=== PATIENT | male | born 1975 | race African-American/Black ===

== ENCOUNTER 2016-12-21 20:45 | Emergency (ER) | payer MEDICARE, OTHER ==
[~2016-12-21] VITALS: Ht 180.3 cm; Wt 168.7 kg
[2016-12-21] MEDS ORDERED: NKM (21:13)
[2016-12-21 21:17] VITALS: BP 136/76
[2016-12-21] MEDS ORDERED: MAALOX ADVANCE770 ML PO (21:53)
--- NOTE | 2016-12-21 21:54 | Emergency Room Report ---
History of Present Illness General Chief Complaint: Sore Throat Source: Patient Present Illness HPI Is a 41-year-old male with history hypertension. He presents with chief complaint of sore throat. Onset for last 2 days. Hurts to swallow. Denies any fever or chills. Denies any nausea vomiting. Able to drink and take fluid. No other complaint. Never had this problem before. Allergies: Coded Allergies: No Known Allergies (Unverified , 04/20/15) Patient History Past Medical History: see triage record, old chart reviewed, HTN Past Surgical History: none Pertinent Family History: none Social History: Denies: drug use Immunizations: other Reviewed Nursing Documentation: PMH: Agreed, PSxH: Agreed Nursing Documentation-PMH Hx Hypertension: Yes Hx Asthma: Yes Review of Systems Eye: Denies: blurred vision, eye pain ENT: Reports: throat pain, Denies: ear pain, nose congestion, throat swelling Respiratory: Denies: cough, shortness of breath Cardiovascular: Denies: chest pain, palpitations Gastrointestinal: Denies: abdominal pain, diarrhea, nausea, vomiting Musculoskeletal: Denies: back pain, joint pain Skin: Denies: rash Neurological: Denies: headache, numbness Endocrine: Denies: increased thirst, increased urine Hematologic/Lymphatic: Denies: easy bruising All Other Systems: negative except mentioned in HPI Physical Exam Vital Signs Date Time Temp Pulse Resp B/P Pulse Ox O2 Delivery O2 Flow Rate FiO2 12/21/16 21:09 98.2 84 16 136/76 99 Room Air vitals normal Sp02 EP Interpretation: reviewed, normal General Appearance: well appearing, no apparent distress, alert Head: normocephalic, atraumatic Eyes: bilateral eye EOMI, bilateral eye PERRL ENT: hearing grossly normal, normal pharynx Neck: full range of motion, supple, no meningismus Respiratory: chest non-tender, lungs clear, normal breath sounds Cardiovascular #1: regular rate, rhythm, no murmur Gastrointestinal: normal bowel sounds, non tender, no mass, no organomegaly, no bruit, non-distended Musculoskeletal: back normal, gait/station normal, normal range of motion Psychiatric: mood/affect normal Skin: warm/dry Medical Decision Making Diagnostic Impression: Primary Impression: Sore throat Additional Impression: Morbid obesity with BMI of 50.0-59.9, adult ER Course Patient presents with sore throat and esophageal pain. No evidence of peritonsillar abscess or retropharyngeal abscess. This may be just a viral illness. Could be stricture, esophagitis, or foreign body. He refuse to eat or drink even a small amount. We'll refer him to see GI Dr. I see no evidence of crepitance of his neck. He is otherwise stable. He has multiple stickers from other hospitals on his duffel bag. These are within the last week. Last Vital Signs Date Time Temp Pulse Resp B/P Pulse Ox O2 Delivery O2 Flow Rate FiO2 12/21/16 21:17 98.2 79 16 136/76 99 Room Air Status: improved Disposition: HOME, SELF-CARE Condition: Stable Scripts Mag Hydrox/Al Hydrox/Simeth (Maalox Advanced Suspension) 355 Ml Oral.susp 770 ML PO QID, #120 ML Prov: AMERICO RUBI M.D. 12/21/16 Referrals: NOT CHOSEN IPA/,REFERRING (PCP) Patient Instructions: Sore Throat Additional Instructions: Followup with your DrLouis in 2 to 3 days. You would need a referral to see a GI doctor. Return if symptom worsen. AMERICO RUBI M.D. Dec 21, 2016 21:54
[2016-12-21 21:56] VITALS: BP 136/76
== END 2016-12-21 21:56 | disposition home or self-care (01) ==
LOC: EMR 21:45
DX: R07.0 Pain in throat (principal); E66.01 Morbid (severe) obesity due to excess calories; Z68.43 Body mass index [BMI] 50.0-59.9, adult; J45.909 Unspecified asthma, uncomplicated; I10 Essential (primary) hypertension
CPT/HCPCS: 99283

== ENCOUNTER 2017-04-13 19:52 | Emergency (ER) | payer MEDICARE, OTHER ==
[~2017-04-13] VITALS: Ht 172.7 cm; Wt 171.5 kg
[~2017-04-13 19:52] MED LIST: MAALOX ADVANCE770 ML PO; NKM
[2017-04-13] MEDS ORDERED: Albuterol ud Inhalation HHN ONE (20:15)
[2017-04-13 20:41] VITALS: BP 126/80
[2017-04-13 20:46] LABS: BASOPHILS % (AUTO) 0.9 % (0.0-2.0); EOSINOPHILS % (AUTO) 2.9 % (0.0-3.0); LYMPHOCYTES % (AUTO) 20.3 % (20.0-45.0); MEAN CORPUSCULAR HEMOGLOBIN 27.2 PG (27.0-31.0); MEAN CORPUSCULAR HGB CONC 32.7 G/DL (32.0-36.0); MEAN CORPUSCULAR VOLUME 83 FL (80-99); MEAN PLATELET VOLUME 9.1 FL (6.5-10.1); MONOCYTES % (AUTO) 6.9 % (1.0-10.0); PLATELET COUNT 199 K/UL (150-450); RED BLOOD COUNT 5.63 M/UL (4.70-6.10); RED CELL DISTRIBUTION WIDTH 12.8 % (11.6-14.8)
--- NOTE | 2017-04-13 20:46 | Emergency Room Report ---
History of Present Illness General Chief Complaint: Asthma Source: Patient, Medical Record Present Illness HPI The patient presents with suicidal ideation and wheezing. His plan is to run out of traffic.. He says that voices are telling him not to take his medication. In addition to that are telling him to kill himself. The patient was seen here yesterday with similar complaints. He was discharged. He states that he still feels as bad if not worse symptoms. In addition to that he has wheezing. He does not have an inhaler. Allergies: Coded Allergies: No Known Allergies (Unverified , 04/20/15) Patient History Past Medical History: see triage record Social History Narrative homeless - apparently has used up all of his medicare benifits Reviewed Nursing Documentation: PMH: Agreed, PSxH: Agreed Nursing Documentation-PMH Past Medical History: No History, Except For Hx Hypertension: Yes Hx Asthma: Yes Physical Exam Vital Signs Date Time Temp Pulse Resp B/P Pulse Ox O2 Delivery O2 Flow Rate FiO2 04/13/17 20:00 98.2 98 18 129/85 97 Room Air Respiratory: wheezing - minimal, expiration Neurologic: alert, oriented x3, grossly normal Psychiatric: depressed affect, anxious Suicide Risk Assessment: Suicidal Ideation: Yes Had intent to initiate attempt: Yes Pt's plan for suicide attempt: Yes Has means to complete attempt: Yes Medical Decision Making Diagnostic Impression: Primary Impression: Schizophrenia Additional Impression: Asthma ER Course Discussed with Dr. Kohli. Patient requests colace and lasix. Laboratory Tests Test 04/13/17 20:25 White Blood Count 12.0 K/UL (4.8-10.8) H Red Blood Count 5.63 M/UL (4.70-6.10) Hemoglobin 15.3 G/DL (14.2-18.0) Hematocrit 46.8 % (42.0-52.0) Mean Corpuscular Volume 83 FL (80-99) Mean Corpuscular Hemoglobin 27.2 PG (27.0-31.0) Mean Corpuscular Hemoglobin Concent 32.7 G/DL (32.0-36.0) Red Cell Distribution Width 12.8 % (11.6-14.8) Platelet Count 199 K/UL (150-450) Mean Platelet Volume 9.1 FL (6.5-10.1) Neutrophils (%) (Auto) 69.0 % (45.0-75.0) Lymphocytes (%) (Auto) 20.3 % (20.0-45.0) Monocytes (%) (Auto) 6.9 % (1.0-10.0) Eosinophils (%) (Auto) 2.9 % (0.0-3.0) Basophils (%) (Auto) 0.9 % (0.0-2.0) Sodium Level 137 mEQ/L (135-145) Potassium Level 4.4 mEQ/L (3.4-4.9) Chloride Level 97 mEQ/L (98-107) L Carbon Dioxide Level 25 mEQ/L (20-30) Anion Gap 15 (5-15) Blood Urea Nitrogen 11 mg/dL (7-23) Creatinine 1.2 mg/dL (0.7-1.2) Estimate Glomerular Filtration Rate > 60 mL/min (>60) Glucose Level 125 mg/dL (74-106) H Calcium Level 9.0 mg/dL (8.6-10.2) Total Bilirubin 0.5 mg/dL (0.0-1.2) Aspartate Amino Transferase (AST) 29 U/L (5-40) Alanine Aminotransferase (ALT) 19 U/L (3-41) Alkaline Phosphatase 111 U/L (40-129) Total Protein 7.5 g/dL (6.6-8.7) Albumin 4.3 g/dL (3.5-5.2) Globulin 3.2 g/dL Albumin/Globulin Ratio 1.3 (1.0-2.7) Salicylates Level < 1 mg/dL (10-30) L Acetaminophen Level < 10 ug/mL (10-30) L Serum Alcohol < 10 mg/dL Chest X-Ray Diagnostic Results Chest X-Ray Ordered: Yes # of Views/Limited/Complete: 1 View EP Interpretation: Yes Interpretation: no consolidation, no effusion, no pneumothorax, no acute cardiopulmonary disease Indication: Shortness of Breath Impression: No acute disease Status: improved Disposition: HOME, SELF-CARE Condition: Improved Ignacio Kruse M.D. Apr 13, 2017 20:46
[2017-04-13 20:59] LABS: ACETAMINOPHEN < 10 ug/mL (10-30); ALANINE AMINOTRANSFERASE 19 U/L (3-41); ALBUMIN/GLOBULIN RATIO 1.3 (1.0-2.7); ALCOHOL < 10 mg/dL; ANION GAP 15 (5-15); ASPARTATE AMINO TRANSFERASE 29 U/L (5-40); CARBON DIOXIDE 25 mEQ/L (20-30); CHLORIDE 97 mEQ/L (98-107); CREATININE 1.2 mg/dL (0.7-1.2); GLOMERULAR FILTRATION RATE > 60 mL/min (>60); HEMOLYSIS 152; POTASSIUM 4.4 mEQ/L (3.4-4.9); SODIUM 137 mEQ/L (135-145); TOTAL PROTEIN 7.5 g/dL (6.6-8.7)
[2017-04-13] MEDS ORDERED: Bacitracin Oint UD TOPIC ONE (21:15)
--- NOTE | 2017-04-13 23:26 | Consultation ---
History of Present Illness General Chief Complaint: Asthma Present Illness HPI 42 yo male with hx of "schizoaffective disorder" came in with cc of RAKESH commanding type, telling him to walk into the traffic. the pt was seen in ed in the morning. He insisted that he is not doing well and if discharge him..he'll jump in front of the car. the pt appeared to be anxious and stated that he has not taken his bp meds. the pt denied recent psych hospitalization and stated that he was last hospitalized a year ago. He replied "i don't know" to most of my questions. The pt stated "I dont want to get into these games...why are you asking so many questions" Later I was notified that hte pt was recently at [facility]. after more research I found out that the pt left the hospital prior coming [place]. the pt has been homeless and apparently was interested only in placement at a sniff or [facility]. I spoke with Dr. Mims regarding this situation and the pt was discharge with f/u referrals. Allergies: Coded Allergies: No Known Allergies (Unverified , 04/20/15) Medication History Scheduled Mag Hydrox/Al Hydrox/Simeth (Maalox Advanced Suspension), 770 ML PO QID No Known Medications* (NKM - No Known Medications*), 0 ., (Reported) Patient History History Provided By: Patient, Medical Record, PMD Healthcare decision maker Resuscitation status Advanced Directive on File Past Medical/Surgical History Past Medical/Surgical History: (1) Palpitations Review of Systems Psychiatric: Reports: anxiety, depressed feelings, emotional problems, prior hx Physical Exam General Appearance: no apparent distress, alert, obese Neurologic: alert, oriented x 3 Last 24 Hour Vital Signs Date Time Temp Pulse Resp B/P Pulse Ox O2 Delivery O2 Flow Rate FiO2 04/13/17 20:44 99 18 100 Room Air 04/13/17 20:41 98 18 Room Air 04/13/17 20:41 98.2 18 126/80 98 Room Air 04/13/17 20:30 98 18 98 Room Air 04/13/17 20:30 98 18 Room Air 04/13/17 20:00 98.2 98 18 129/85 97 Room Air Laboratory Tests Test 04/13/17 20:25 White Blood Count 12.0 K/UL (4.8-10.8) H Red Blood Count 5.63 M/UL (4.70-6.10) Hemoglobin 15.3 G/DL (14.2-18.0) Hematocrit 46.8 % (42.0-52.0) Mean Corpuscular Volume 83 FL (80-99) Mean Corpuscular Hemoglobin 27.2 PG (27.0-31.0) Mean Corpuscular Hemoglobin Concent 32.7 G/DL (32.0-36.0) Red Cell Distribution Width 12.8 % (11.6-14.8) Platelet Count 199 K/UL (150-450) Mean Platelet Volume 9.1 FL (6.5-10.1) Neutrophils (%) (Auto) 69.0 % (45.0-75.0) Lymphocytes (%) (Auto) 20.3 % (20.0-45.0) Monocytes (%) (Auto) 6.9 % (1.0-10.0) Eosinophils (%) (Auto) 2.9 % (0.0-3.0) Basophils (%) (Auto) 0.9 % (0.0-2.0) Sodium Level 137 mEQ/L (135-145) Potassium Level 4.4 mEQ/L (3.4-4.9) Chloride Level 97 mEQ/L (98-107) L Carbon Dioxide Level 25 mEQ/L (20-30) Anion Gap 15 (5-15) Blood Urea Nitrogen 11 mg/dL (7-23) Creatinine 1.2 mg/dL (0.7-1.2) Estimat Glomerular Filtration Rate > 60 mL/min (>60) Glucose Level 125 mg/dL (74-106) H Calcium Level 9.0 mg/dL (8.6-10.2) Total Bilirubin 0.5 mg/dL (0.0-1.2) Aspartate Amino Transf (AST/SGOT) 29 U/L (5-40) Alanine Aminotransferase (ALT/SGPT) 19 U/L (3-41) Alkaline Phosphatase 111 U/L (40-129) Total Protein 7.5 g/dL (6.6-8.7) Albumin 4.3 g/dL (3.5-5.2) Globulin 3.2 g/dL Albumin/Globulin Ratio 1.3 (1.0-2.7) Salicylates Level < 1 mg/dL (10-30) L Acetaminophen Level < 10 ug/mL (10-30) L Serum Alcohol < 10 mg/dL Height (Feet): 5 Height (Inches): 8.00 Weight (Pounds): 378 Assessment/Plan Status: stable Assessment/Plan The pt is not at imminent dts/dto. He is not gravely disabled. the pt is homeless and stated that if sw "help me with housing I will be ok". the pt has also been noncompliant with his medications and when i suggested antipsychotics , he was adamant against taking the medication. Leigha Kohli M.D. Apr 13, 2017 23:26
[2017-04-14] MEDS ORDERED: chlorproMAZINE 25mg tab ORAL ONE
[2017-04-14] MEDS ORDERED: Benztropine 1mg tab ORAL ONE
[2017-04-14 00:37] VITALS: BP 126/80
[2017-04-14] MEDS ORDERED: Furosemide 40mg tab ONE ×2 (01:42→04:19)
[2017-04-14] MEDS ORDERED: Docusate 100mg cap ORAL ONE (04:15)
[2017-04-14] MEDS ORDERED: RISPERIDONE2 MG ORAL (04:22)
[2017-04-14] MEDS ORDERED: COLACE100 MG ORAL (04:22)
[2017-04-14 04:30] VITALS: BP 105/69
[2017-04-14] MEDS ORDERED: BACITRACIN15 GM TOPIC (04:33)
[2017-04-14 04:42] VITALS: BP 105/69
--- NOTE | 2017-04-14 10:25 | Diagnostic Imaging Report ---
Indication: Cough, dyspnea Technique: Single portable AP view of the chest. Findings: Comparison: None. The bones and extra pulmonary soft tissues, cardiomediastinal silhouette, pulmonary vasculature and parenchyma, and pleural surfaces are unremarkable. IMPRESSION: Negative portable AP chest .
== END 2017-04-14 04:40 | disposition home or self-care (01) ==
LOC: EMR 21:31
DX: F20.9 Schizophrenia, unspecified (principal); J45.909 Unspecified asthma, uncomplicated; R45.851 Suicidal ideations; I10 Essential (primary) hypertension; Z59.0 Homelessness
CPT/HCPCS: 36415; 71010; 80053; 85025; 94640; 94664; 99283; G0480; 80329